=== PATIENT | male | born 1960 | race Caucasian/White ===

== ENCOUNTER → 2020-03-10 09:18 | Outpatient (CLI) | payer OTHER, SELFPAY ==
--- NOTE | 2020-03-10 | DI.MRI.S_ITS ---
PROCEDURE: MR CERVICAL SPINE WO CON INDICATIONS: Radiculopathy, cervical region TECHNIQUE: Noncontrast sagittal T1 spin echo and T2 fast spin echo, sagittal STIR, foraminal oblique sagittal T2 fast spin echo, and axial gradient echo or T2 fast spin echo through the cervical spine. COMPARISON: None. FINDINGS: Image quality: Excellent. Alignment and Curvature: There is normal bony alignment. Bone Marrow: Marrow demonstrates normal overall signal. Spinal Cord: Visualized spinal cord has normal size and signal. No cerebellar tonsillar herniation. Paraspinous Soft Tissues: No paravertebral masses. Prevertebral soft tissues are normal in thickness. C2-C3: Preserved disc height. Moderate disc desiccation. There is minimal posterior disc bulge. The central canal is patent. Mild left foraminal stenosis. No right adnexal cysts C3-C4: Preserved disc height. Moderate disc desiccation. There is diffuse posterior disc bulge. Uncovertebral hypertrophy. The central canal is mildly narrowed. Severe right and moderate left foraminal stenosis. C4-C5: Preserved disc height. Moderate disc desiccation. There is diffuse posterior disc bulge. Moderate bilateral facet arthropathy. The central canal is mildly narrowed. Mild to moderate bilateral foraminal stenosis. C5-C6: Mild loss of disc height and moderate disc desiccation. There is diffuse posterior disc bulge. Uncovertebral hypertrophy and bilateral facet arthropathy. The central canal is yzqntysw-ao-jfxsgzai narrowed. Ssvkomqq-ew-zcpmxz bilateral foraminal stenosis. C6-C7: Mild loss of disc height and moderate disc desiccation. There is diffuse posterior disc bulge. Uncovertebral hypertrophy and bilateral facet arthropathy. The central canal is bcfx-jy-dkvqclawlo narrowed. Moderate left and mild right foraminal stenosis. C7-T1: Normal appearance. IMPRESSION: 1. Multilevel degenerative disc disease and facet arthropathy as described. 2. Multilevel central canal stenosis, most pronounced and uhjgzghx-cp-ocnzig at C5-C6. 3. Multilevel foraminal stenosis as described. Dictated by: La Méndez M.D. on 03/10/2020 at 13:53 Approved by: La Méndez M.D. on 03/10/2020 at 14:09
== END ==
PROVIDERS: Referring Provider Psychiatry & Neurology Vascular Neurology; Visit Provider Psychiatry & Neurology Vascular Neurology
DX: M50.11 Cervical disc disorder with radiculopathy, high cervical region (principal); M47.22 Other spondylosis with radiculopathy, cervical region; M48.02 Spinal stenosis, cervical region; R20.0 Anesthesia of skin; R20.2 Paresthesia of skin
CPT/HCPCS: 72141

== ENCOUNTER → 2021-10-25 06:21 | Outpatient (CLI) | payer OTHER, SELFPAY ==
--- NOTE | 2021-10-25 | DI.MRI.S_ITS ---
PROCEDURE: MR BRAIN (IAC) WWO CON INDICATIONS: Unspecified hearing loss, right ear TECHNIQUE: Noncontrast sagittal T1 spin echo, axial FLAIR, axial gradient echo, axial diffusion and ADC through the brain. Axial thin-slice 3D CISS, coronal TruFISP, axial T1 spin echo with fat saturation through the internal auditory canals. After the administration of contrast, thin slice axial and coronal T1 spin echo with fat saturation through the internal auditory canals, and axial T1 spin echo with fat saturation through the brain. COMPARISON: None. FINDINGS: Image quality: Excellent. Cerebellopontine angles: No cerebellopontine angle masses. Inner ear structures appear normally formed. No suspicious enhancement in the internal auditory canal or along the course of the 7th cranial nerve. CSF spaces: Ventricles are normal in size and shape. No extra-axial fluid collections. Basal cisterns are patent. Brain: No intracranial bleeds or mass effects. Mild diffuse cerebral volume loss. Mild degree of patchy high FLAIR signal within the periventricular and subcortical white matter. Mild patchy FLAIR signal elevation within the luis. Childs-white matter interface is intact. No abnormal intracranial enhancement. Diffusion weighted images demonstrate no acute ischemic insults. Brainstem otherwise appears normal. Normal intravascular flow voids are present. Skull and face: Calvarial marrow signal is normal. Orbits appear normal. Sinuses: Sinuses and mastoids are clear. IMPRESSION: 1. Negative evaluation of the internal auditory canals. 2. Mild volume loss and small vessel ischemic disease. 3. No acute process. No recent infarct. Dictated by: Maureen Mcneal M.D. on 10/25/2021 at 8:23 Approved by: Maureen Mcneal M.D. on 10/25/2021 at 8:25
== END ==
PROVIDERS: Referring Provider Family Medicine; Visit Provider Family Medicine
DX: H91.91 Unspecified hearing loss, right ear (principal)
CPT/HCPCS: 70553

== ENCOUNTER → 2023-01-26 | Outpatient (CLI) | payer OTHER, SELFPAY ==
--- NOTE | 2023-01-26 09:12 | PM.TREADMILL ---
Cardiac Stress Test Report Referral & Results Date Patient Seen: 01/26/23 Requesting provider: Estiven Del Rosario Indication: Dyspnea Rest ECG: Unremarkable Procedure Note: Today following both written and verbal informed consent, the patient was exercised according to a standard [facility] protocol. The patient exercised for a total of 7 minutes 4 seconds achieving a maximum heart rate of 139. Patient's maximum systolic blood pressure was 160. This was an estimated 10.1 MET's. There were no ST-T segment changes Normal heart rate and blood pressure response to exercise No notable dyspnea beyond that expected at patient's workload Function aerobic impairment rates about 10% on the sedentary scale Impression: No evidence of ischemia based on usual criteria. Slightly reduced exercise capacity Please note: Actual ECG tracings can be found in the PACS system.
== END ==
LOC: RAD 07:43
PROVIDERS: Referring Provider Internal Medicine Cardiovascular Disease; Visit Provider Internal Medicine Cardiovascular Disease
DX: R07.89 Other chest pain (principal); R06.09 Other forms of dyspnea
CPT/HCPCS: 93016; 93017; 93018